=== PATIENT | male | born 1985 | race Caucasian/White ===

== ENCOUNTER 2021-09-24 09:52 | Emergency (ER) | payer MEDICAID ==
[~2021-09-24] VITALS: Ht 190.5 cm; Wt 113.0 kg
[2021-09-24 11:11] VITALS: BP 120/70
== END 2021-09-24 11:17 | disposition home or self-care (01) ==
LOC: ED 09:52
DX: Z03.821 Encounter for observation for suspected ingested foreign body ruled out (principal)